=== PATIENT | male | born 1970 | race Two or more races ===

== ENCOUNTER 2018-02-28 13:47 | Emergency (ER) | payer OTHER ==
[~2018-02-28] VITALS: Ht 162.6 cm; Wt 72.6 kg
[2018-02-28 14:02] VITALS: BP 156/103
[2018-02-28] MEDS ORDERED: Lidocaine 1% 10mg/ml/Epi 0.005mg/ml 30ml vial INJ ONE (14:15)
[2018-02-28] MEDS ORDERED: Tetanus/Diptheria/Pertussis Vaccine 0.5ml Syr IM ONE (14:15)
--- NOTE | 2018-02-28 15:45 | Emergency Room Report ---
History of Present Illness General Chief Complaint: Laceration Source: Patient Present Illness HPI 47-year-old male presents to the emergency department complaining of 6 out of 10 in severity pain to the dorsum of the left hand times one hour. Patient reports that he was at work using a plate grinder to cut a pipe, a part of the tool came off and cut his hand in the process. He reports that he is left-hand dominant. Denies weakness in that extremity denies taking blood thinning medications. Patient does not know when his last tetanus vaccination was. Denies numbness tingling or loss of sensation or gross motor movements of the extremities, incontinence of bowel or bladder. Denies CP, Palpitations, LOC, AMS , dizziness, Changes in Vision, weakness or a sudden severe headache. Allergies: Coded Allergies: No Known Allergies (Unverified , 02/28/18) Patient History Past Medical History: see triage record Past Surgical History: none Pertinent Family History: none Reviewed Nursing Documentation: PMH: Agreed; PSxH: Agreed Nursing Documentation-PMH Past Medical History: No Stated History Review of Systems All Other Systems: negative except mentioned in HPI Physical Exam Vital Signs Date Time Temp Pulse Resp B/P (MAP) Pulse Ox O2 Delivery O2 Flow Rate FiO2 02/28/18 14:02 97.5 91 14 156/103 95 Room Air Sp02 EP Interpretation: reviewed, normal General Appearance: no apparent distress, alert, GCS 15, non-toxic Head: normocephalic, atraumatic Eyes: bilateral eye normal inspection, bilateral eye PERRL ENT: hearing grossly normal, normal voice Neck: full range of motion Respiratory: lungs clear, normal breath sounds, speaking full sentences Cardiovascular #1: regular rate, rhythm Musculoskeletal: back normal, gait/station normal, normal range of motion, tender - TTP about the laceration. Pt. is able to extend each fingers 2-4 of left hand against resistance. NO obvious visible tendon laceration. Neurologic: alert, oriented x3, responsive, motor strength/tone normal, sensory intact, speech normal, other - NVI distally to laceration , grossly normal Psychiatric: judgement/insight normal Skin: normal color, no rash, warm/dry, well hydrated, laceration - laceration to the dorsum of the left hand which is approx 3 inches in length Procedures Laceration/Wound Repair Laceration/Wound Repair : Consent: Verbal Wound Location: upper extremity - Dorsum of the left hand Wound's Depth, Shape: linear - linear and slanted Wound Explored: contaminated - grossly contaminated Irrigated w/ Saline (ccs): 1000 Anesthesia: Lidocaine w/ Epi Volume Anesthetic (ccs): 3 Wound Repaired With: sutures Suture Size/Type: 4:0 Number of Sutures: 7 Layer Closure?: No Sterile Dressing Applied?: Yes Splint Applied?: Yes - finger splint to left middle finger and mahamed taped to left index finger which is also mahamed taped. Sling Applied?: Yes Patient Tolerated: Well Complications: None Medical Decision Making PA Attestation Dr. serrato is my supervising Physician whom patient management has been discussed with. Diagnostic Impression: Primary Impression: Laceration ER Course 47-year-old male presents to the emergency department complaining of 6 out of 10 in severity pain to the dorsum of the left hand times one hour. Patient reports that he was at work using a plate grinder to cut a pipe, a part of the tool came off and cut his hand in the process. He reports that he is left-hand dominant. Denies weakness in that extremity denies taking blood thinning medications. Patient does not know when his last tetanus vaccination was. Denies numbness tingling or loss of sensation or gross motor movements of the extremities, incontinence of bowel or bladder. Denies CP, Palpitations, LOC, AMS , dizziness, Changes in Vision, weakness or a sudden severe headache. Ddx considered but are not limited to laceration, tendon injury, cellulitis, amputation Vital signs: are WNL, pt. is afebrile H&PE are most consistent with: laceration to the dorsum of the left hand which is approx 3 inches in length ORDERS: none required at this time, the diagnosis is clinical ED INTERVENTIONS: -Tetanus vaccine was administered as pt. vaccination status was unknown. - The wound was copiously and aggressively irrigated with normal saline as it was grossly contaminated. Wound was explored for Tendon laceration or foreign body for which no FB was found. - pt. is anesthetized with 1%lidocaine w. epi. - The wound was approximated and closed using 7 interrupted 4.0 Ethilon sutures. -Bacitracin and sterile dressing is applied. Discussed with patient: That we make every effort to approximate the laceration as best as we can so that scarring will be as cosmetically pleasing as possible with our limited cosmetic skill set in the Emergency dept. Regardless of our best efforts there will be scarring after laceration repair. The extent of scarring is unknown at this time. - Finger splint x 2 ( Finger splint to left middle finger and mahamed taped to left index finger which is also mahamed taped. )with mahamed tape applied by hydro plant technician. Pt. remains neurovascularly intact and extremity is immobilized well. d/w pt. leave splint on x 10 days. Sutures to be assessed for removal at 10 day. Pt .to follow up with his employer to facilitate anticipated further management for this injury. DISCHARGE: At this time pt. is stable for d/c to home. Will provide printed patient care instructions, and any necessary prescriptions. Care plan and follow up instructions have been discussed with the patient prior to discharge. Last Vital Signs Date Time Temp Pulse Resp B/P (MAP) Pulse Ox O2 Delivery O2 Flow Rate FiO2 02/28/18 14:02 97.5 91 14 156/103 95 Room Air Disposition: HOME, SELF-CARE Condition: Stable Scripts Trimethoprim/Sulfamethoxazole 160/800* (BACTRIM DS TABLET*) 1 Each Tablet 1 TAB ORAL TWICE A DAY for 7 Days, #14 TAB Prov: Haylee Diggs 02/28/18 Bacitracin/Polymyxin B Sulfate (BACITRACIN-POLYMYXIN OINTMENT) 28.35 Gm Oint...g. 1 APPLIC TP BID, #28.3 GM Prov: Haylee Diggs 02/28/18 Acetaminophen* (TYLENOL EXTRA STRENGTH*) 500 Mg Tablet 500 MG ORAL Q6H, #30 TAB 0 Refills Prov: Haylee Diggs 02/28/18 Cephalexin* (KEFLEX*) 500 Mg Capsule 500 MG ORAL EVERY 12 HOURS for 7 Days, #14 CAP 0 Refills Prov: Haylee Diggs 02/28/18 Departure Forms: Return to Work Return to Work Date: Mar 04, 2018 Work Restrictions: No Heavy Lifting Other Restrictions: Limited use of Left hand. Return to Full Activity: Mar 11, 2018 Patient Instructions: Laceration Care, Adult Additional Instructions: Take medications as directed. Follow up with a Primary Care Provider in 3-5 days, even if your symptoms have resolved. --Please review list of primary care clinics, if you do not already have a primary care provider Return sooner to ED if new symptoms occur, or current symptoms become worse. - Please note that this Emergency Department Report was dictated using [employer] technology software, occasionally this can lead to erroneous entry secondary to interpretation by the dictation equipment. Haylee Diggs Feb 28, 2018 15:45
[2018-02-28] MEDS ORDERED: CEPHALEXIN500 MG ORAL (15:46)
[2018-02-28] MEDS ORDERED: BACITRACIN-P28.35 GM TP (15:47)
[2018-02-28] MEDS ORDERED: BACTRIM DS TAB1 EAC1 ORAL (15:47)
[2018-02-28] MEDS ORDERED: TYLENOL EXTRA500 MG ORAL (15:47)
[2018-02-28 16:03] VITALS: BP 143/86
== END 2018-02-28 16:06 | disposition home or self-care (01) ==
LOC: EMR 15:49
DX: S61.412A Laceration without foreign body of left hand, initial encounter (principal); S69.92XA Unspecified injury of left wrist, hand and finger(s), initial encounter; Z23 Encounter for immunization; W31.89XA Contact with other specified machinery, initial encounter; Y93.89 Activity, other specified; Y92.69 Other specified industrial and construction area as the place of occurrence of the external cause; Y99.8 Other external cause status
CPT/HCPCS: 90471; 90715; 99284